=== PATIENT | male | born 1960 | race Caucasian/White ===

== ENCOUNTER → 2018-09-11 10:38 | Outpatient (CLI) | payer OTHER, SELFPAY ==
[2018-09-11 09:41] VITALS: BMI 31.5
[2018-09-11 12:16] LABS: AST(SGOT) 35 U/L (15-37); Alanine Aminotransfer ALT/SGPT 45 U/L (16-61); Albumin, Serum 3.7 g/dL (3.2-5.0); Alkaline Phosphatase 67 U/L (45-117); Anion Gap 11 (5-15); BUN 15 mg/dL (7-18); BUN/Creat Ratio 13.8 RATIO (10-20); Calcium,Total 8.7 mg/dL (8.5-10.1); Chloride 101 mmol/L (98-107); Creatinine, Serum 1.09 mg/dL (0.70-1.30); EST Glomerular Filtration Rate 73 mL/min (>60); Est Glom Filt Rate - Afr Amer 89 mL/min (>60); Globulin 3.7 g/dL (2.2-4.2); Glucose 95 mg/dL (74-106); Potassium 4.4 mmol/L (3.5-5.1); Protein, Total 7.4 g/dL (6.4-8.2); Sodium Level 138 mmol/L (136-145)
--- OUTSIDE RECORDS SUMMARY | 2018-12-13 14:48 | XMS RPT_ITS ---
:1960 Author Organization OHIP Care Team Providers Name Role Phone Chris Brock Attending Unavailable Brown, Chris Referring Unavailable Brown, Chris Attending Unavailable Brown, Chris Referring Unavailable Brown, Chris Primary Care Unavailable Marbin Shi VOLUNTEER SERVICES SPECIALIST-C Attending Unavailable Brown, Chris Referring Unavailable Brown, Chris Primary Care Unavailable PROBLEMS PROBLEMS DATE TYPE CONDITION / CODE ATTENDING STATUS SOURCE 09/11/2018 Unknown I10 - Essential Chris Brock Active Roberta (primary) [facility] hypertension / Hospital I10(ICD-10) Repository PROCEDURES PROCEDURES No Procedure Records FoundRESULTS RESULTS COMPREHENSIVE METABOLIC Collected: 09/11/2018 Status: F Source: [place] PROFIL 10:42 AM [facility] REPOSITORY TYPE CODE TESTS RESULT OUT OF RANGE REFERENCE UNITS LAB L501.0100 74-106 mg/dL Normal GLU 95 Result Comment: Please note revised GLUCOSE reference range effective 2017. LAB L501.1000 7-18 mg/dL Normal BUN 15 LAB L501.1100 0.70-1.30 mg/dL Normal CREAT,SERUM 1.09 Result Comment: The validity of the calculated GFR AND GFRAA in patients over 70 years has not been determined. Clinical correlation is essential. LAB L501.1110 >60 mL/min Normal EST GFR 73 Result Comment: Non- GFR Calc LAB L501.1115 >60 mL/min Normal EST GFR - AA 89 Result Comment: GFR Calc LAB L501.1300 10-20 RATIO Normal BUN/CRE 13.8 LAB L501.1500 6.4-8.2 g/dL T Normal PROT 7.4 LAB L501.1800 3.2-5.0 g/dL Normal ALB 3.7 LAB L501.1950 2.2-4.2 g/dL Normal GLOB 3.7 LAB L501.2000 0.9-2.4 RATIO Normal A/G 1.0 LAB L501.2200 8.5-10.1 mg/dL CA Normal 8.7 LAB L501.4100 15-37 U/L Normal AST 35 Result Comment: Slight Hemolysis, Result may be falsely increased. LAB L501.4305 45-117 U/L Normal ALK P 67 LAB L501.4405 16-61 U/L Normal ALT 45 LAB L501.4600 0.20-1.00 mg/dL Normal T BILI 0.60 LAB L501.5300 136-145 mmol/L Normal NA 138 LAB L501.5600 3.5-5.1 mmol/L Normal K 4.4 Result Comment: Slight Hemolysis, Result may be falsely increased. LAB L501.5900 98-107 mmol/L Normal CL 101 LAB L501.6100 21.0-32.0 mmol/L Normal CO2 26.0 LAB L501.6200 5-15 Normal GAP 11 Performed By: #### L500.4050 #### [facility] [address] [place], [address] INTERNAL MEDICINE Observed: 09/11/2018 Status: F Source: [place] OFFICE VISIT 10:[address] [facility] REPOSITORY [facility] [address] [place] [address] [place] [address] OFFICE VISIT Date of Service: 09/11/18 MR#: [id number] Acct: [id number] Name: LOREE GLEASON Rep #: [id number] : 1960 Provider: Chris Brock DO Age/Sex: 57/M [place] [facility] Status: Signed Intake Vital Signs09/11/18 Height 5 ft 11 in 09/11/18 Weight: 226 lb 09/11/18 Body Mass Index (BMI) 31.5 09/11/18 Blood Pressure 144/86 H Intake Visit Reasons: ANNUAL WELLNESS VISIT Chief Complaint: Annual Wellness Visit Database Dba Required: No Is patient in pain?: No Allergies Penicillins Allergy (Verified 09/11/18 09:43) Other Medications atenolol 50 mg tablet 50 mg PO DAILY #90 tab 06/14/18 [Rx Confirmed 09/11/18] lisinopril 20 mg tablet 20 mg PO DAILY #90 tab 06/14/18 [Rx Confirmed 09/11/18] PFSH Medical History High cholesterol (Chronic) Hypertension (Chronic) Surgical History History of orthopedic surgery (Acute) History of partial surgical removal of colon (Acute) Social History Smoking Status: Never smoker alcohol intake: current alcohol intake frequency: 0-2 drinks per day substance use type: does not use what type of physical activity do you participate in: none HPI HPI Chief Complaint: Annual Wellness Visit Details: LOREE GLEASON, is a 57 M who presents to the office today for Check up on blood pressure medications. ROS Const Constitutional: No chills, fatigue, fever(s), frequent falls, malaise, weakness, sleep problems or change in appetite Eyes Eyes: No blurry vision, change in vision, double vision, discharge or visual disturbances ENT ENT: No abnormal hearing, ear pain, ear pressure, tinnitus or dizziness/vertigo Resp Respiratory: No cough, shortness of breath or wheezing Cardio Cardiology: No chest pain at rest, chest pain with exertion, shortness of breath, dyspnea on exertion, generalized swelling, irregular heart rhythm, lightheadedness, orthopnea, fast heart rate or palpitations Gastro GI: No abdominal pain, change in bowel habits, constipation, diarrhea, nausea/dyspepsia or vomiting Musc Musculoskeletal: No joint pain, back pain, joint swelling, limited range of motion, numbness, tingling or muscle weakness Skin Skin: No change in skin color, itching, rash or wounds Breast Breast: No breast lump or breast pain Neuro Neurology: No frequent falls, weakness, visual disturbances, abnormal hearing, numbness, tingling, unsteady gait/balance, dizziness, loss of vision or memory loss Psych Psychiatric: No change in appetite, No memory loss, No anxiety, No depression, No Thoughts of harming yourself/Others Endo Endocrine: No fatigue, heat intolerance, increased thirst/drinking, increased hunger or increased urination Aller/Imm Allergy/Immunologic: No wheezing, itchy eyes or seasonal allergy symptoms Isaiah/Lymp Hematologic/Lymphatic: No easy bleeding, easy bruising or enlarged lymph nodes Exam Const General: cooperative, comfortable, no acute distress Nutritional Appearance: average body habitus, well nourished Orientation: alert, oriented x3 Limitations: mental status not altered Resp Effort AND Inspection: normal respiratory effort, able to speak in complete sentences, normal respiratory pattern, symmetric chest movement, no audible wheezes, no cough Auscultation: Bilateral: Clear to Auscultation Cardio Palpation: normal PMI Rate: regular rate Heart Sounds: S1 normal, S2 normal, normal S1 and S2, no click, no gallops, no murmurs, no rubs Musc Musculoskeletal: No muscle weakness Skin General: no rashes or lesions noted, elasticity normal, turgor normal Lesions: no lesions Rashes: no rashes Neuro General: alert, awake, oriented x3, CN's II-XI intact bilaterally Speech: speech normal Gait: normal gait Motor: muscle tone normal throughout Extrem General: normal to inspection, normal gait, no edema, no pedal edema Psych Appearance: grossly normal Mental Status: mental status grossly normal Affect: normal affect Attitude: cooperative Thought Process: normal Assessment AND Plan Problems 1. Hypertension I10 2. High cholesterol E78.00 3. Shoulder pain, right M25.511 Plan Set up Cologuard testing. Blood work was ordered medications were refilled.He mentions something about some weakness of his right shoulder but he has perfect range of motion and no pain in the shoulder at all all I could suggest his physical therapy which he may want to do at a later time. Orders Orders: Plan Detail Follow Up 1 Year Coding Level of Care Code Off vis,est,level 3 Diagnoses Hypertension I10 High cholesterol E78.00 Shoulder pain, right M25.511 09/11/18 1017 <Electronically signed by Chris Brock DO> Date [facility] Signature: Date (if applicable) CC: INTERNAL MEDICINE Observed: 06/14/2018 Status: F Source: [place] OFFICE VISIT 4:12 PM [facility] [address] [place] [address] [place] [address] OFFICE VISIT Date of Service: 06/14/18 MR#: [id number] Acct: [id number] Name: LOREE GLEASON Rep #: [id number] : 1960 Provider: Marbin Shi NP Age/Sex: 57/M Location[place] [facility] Status: Signed Intake Vital Signs06/14/18 Height 5 ft 11 in 06/14/18 Weight: 217 lb 06/14/18 Body Mass Index (BMI) 30.2 06/14/18 Blood Pressure 121/77 Intake 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 PT/NEEDS REFILLS Chief Complaint: Needs refills on meds Is patient in pain?: No Allergies Penicillins Allergy (Verified 06/14/18 15:17) Other Medications atenolol 50 mg tablet 50 mg PO DAILY #90 tab 06/14/18 [Rx Confirmed 06/14/18] lisinopril 20 mg tablet 20 mg PO DAILY #90 tab 06/14/18 [Rx Confirmed 06/14/18] PFSH Medical History High cholesterol (Chronic) Hypertension (Chronic) Surgical History History of orthopedic surgery (Acute) History of partial surgical removal of colon (Acute) Social History Smoking Status: Never smoker alcohol intake: current alcohol intake frequency: 0-2 drinks per day substance use type: does not use what type of physical activity do you participate in: none HPI HPI Chief Complaint: Needs refills on meds Details: LOREE GELASON, is a 57 M who presents to the office today for an acute visit of needing refills of his blood pressure medications. He has a past medical history significant for hypertension and hyperlipidemia. The patient states that he has not followed up with primary care for approximately 2 years and is needing a refill of his blood pressure medications. He states that at one point about a year ago he stopped his medications cold turkey and noted his blood pressure was out of control so restarted them but was concerned about running out of the medications so only took them every other day. A courtesy 30 day supply was called in by myself last week and patient has been taking it appropriately and tolerating both medications well. His blood pressure today in the office is 121/77. He denies any signs of hypotension at this time. He denies any chest pain, shortness of breath, syncope, or presyncopal episodes. He does have a annual checkup scheduled later this year. He is requesting 90 day supplies of his medications. ROS Const Constitutional: No chills, fatigue, fever(s), frequent falls, malaise, weakness, sleep problems or change in appetite Eyes Eyes: No blurry vision, change in vision, double vision, discharge or visual disturbances ENT ENT: No abnormal hearing, ear pain, ear pressure, tinnitus or dizziness/vertigo Resp Respiratory: No cough, shortness of breath or wheezing Cardio Cardiology: No chest pain at rest, chest pain with exertion, shortness of breath, dyspnea on exertion, generalized swelling, irregular heart rhythm, lightheadedness, orthopnea, fast heart rate or palpitations Gastro GI: No abdominal pain, change in bowel habits, constipation, diarrhea, nausea/dyspepsia or vomiting Genitourinary Male: No difficulty urinating, burning urination, painful urination, urinary incontinence, urinary frequency, urinary urgency, urinary hesitancy, urinary retention, blood in urine, Frequent nighttime urination/ nocturia, sexual problems, testicle lump or testicle pain Musc Musculoskeletal: Positive for back pain and stiffness; no joint pain, joint swelling, limited range of motion, muscle weakness, numbness or tingling Skin Skin: No change in skin color, itching, rash or wounds Breast Breast: No breast lump or breast pain Neuro Neurology: No frequent falls, weakness, abnormal hearing, numbness, tingling, unsteady gait/balance, dizziness, loss of vision, memory loss or visual disturbances Psych Psychiatric: No memory loss, No anxiety, No change in appetite, No depression, No Thoughts of harming yourself/Others Endo Endocrine: No fatigue, heat intolerance, increased thirst/drinking, increased hunger or increased urination Aller/Imm Allergy/Immunologic: No wheezing, itchy eyes or seasonal allergy symptoms Isaiah/Lymp Hematologic/Lymphatic: No easy bleeding, easy bruising or enlarged lymph nodes Exam Const General: cooperative, comfortable, no acute distress Nutritional Appearance: average body habitus, well nourished Orientation: alert, oriented x3 Limitations: mental status not altered Resp Effort AND Inspection: normal respiratory effort, able to speak in complete sentences, normal respiratory pattern, symmetric chest movement, no audible wheezes, no cough Auscultation: Bilateral: Clear to Auscultation Cardio Palpation: normal PMI Rate: regular rate Heart Sounds: S1 normal, S2 normal, normal S1 and S2, no click, no gallops, no murmurs, no rubs Musc Musculoskeletal: No muscle weakness Skin General: no rashes or lesions noted, elasticity normal, turgor normal Lesions: no lesions Rashes: no rashes Neuro General: alert, awake, oriented x3, CN's II-XI intact bilaterally Speech: speech normal Gait: normal gait Motor: muscle tone normal throughout Extrem General: normal to inspection, normal gait, no edema, no pedal edema Psych Appearance: grossly normal Mental Status: mental status grossly normal Affect: normal affect Attitude: cooperative Thought Process: normal Assessment AND Plan Problems 1. HTN (hypertension) I10 2. High cholesterol E78.00 Plan Hypertension: Controlled on current medications, will not make any adjustments at this time. Will continue with current medication regimen, risk factor reduction, and lifestyle modifications. Discussed dietary changes that should be considered which include reducing the amount of sodium intake. The patient continues to control his cholesterol with dietary modifications, though has not had it checked in quite some time. Patient has not had screening blood work in quite some time, he has a routine annual check scheduled this year and lab work and routine screenings will be addressed at that time. Discussed red flag symptoms of hypertension that require urgent medical attention. Patient verbalized understanding. Medications Refilled: Plan Detail Follow Up As previously scheduled or sooner if needed Coding Level of Care Code Off vis,new,level 3 Diagnoses HTN (hypertension) I10 High cholesterol E78.00 06/14/18 1612 <Electronically signed by Marbin MILLERC> Date Marbin Shi VOLUNTEER SERVICES SPECIALIST-C Cosigner Signature: Date (if applicable) CC: ALLERGIES ALLERGIES DATE TYPE / CODE NAME / CODE REACTION SEVERITY SOURCE 09/11/2018 Drug Penicillins/ Other Unknown [facility] Allergy/4160 [id number]( Hospital 91118(SNOMED XNORM) Repository CT) ENCOUNTERS ENCOUNTERS ADMIT/DISCHARGE ACCOUNT ADMITTING ENCOUNTER LOCATION SOURCE NUMBER CLASS 09/11/2018 [id number] Ambulatory Roberta Roberta 1 [facility] ing:LAB Repository 09/11/2018/ [id number] Ambulatory BMSBuilding:B [place] [address] [place] Repository 06/14/2018/ [id number] Ambulatory BMSBuilding:B [place] [address] [facility] Repository PAYERS PAYERS ENCOUNTER GUARANTOR PAYER SUBSCRIBER SOURCE 09/11/2018 LOREE [id number] Primary LOREE HOUTZDOB: Chris MARQUITA Insurance:Antoinette [id number] [place], [place] Number: [facility] [id number]: [phone] [id number] Repository [phone] () Date:[id number], [place] [address]NU: 09/11/2018 Secondary NOT GIVENUNK Chris Insurance:SELF PAY [facility] Number: Effective Repository Date:2018-09-11 09/11/2018 LOREE [id number] Primary LOREE HOUTZDOB: Chris MARQUITA Insurance:[place]to[id number] Number: [place] [facility] [id number]: [phone] [id number] Repository [phone] () Date:[id number] [address], [place] [address]AB: 09/11/2018 Secondary NOT GIVENUNK Chris Insurance:[facility] Number: Effective Repository Date:2018-09-11 06/14/2018 LOREE [id number] Primary LOREE BURGESSNEGRITAB: Roberta MARQUITA Insurance:Antoinette [id number] [place] Number: [place] [facility] [id number]: [phone] [id number] Repository [phone] () Date:[id number] [address], [place] [address]GN: 06/14/2018 Secondary NOT GIVENUNK Roberta Insurance:SELF PAY [facility]: Effective Repository Date:2018-06-14
== END ==
PROVIDERS: Family Provider Family Medicine; PCP Family Medicine; Referring Provider Family Medicine; Visit Provider Family Medicine
DX: I10 Essential (primary) hypertension (principal)
CPT/HCPCS: 36415; 80053

== ENCOUNTER → 2019-03-21 | Outpatient (CLI) | payer BC, SELFPAY ==
[2019-03-19 09:51] VITALS: BMI 31.5
[2019-03-21 12:15] LABS: Hematocrit 43.4 % (40-54); Hemoglobin 14.9 g/dl (13.0-16.5); Mean Corp Hgb Conc 34.3 g/gl (32-36); Mean Corpuscular Hgb 31.1 pg (27.0-32.0); Mean Corpuscular Volume 90.6 fL (80-94); Platelet Count 197 K/mm3 (150-450); RBC Distribution Width CV 12.8 % (11.6-14.6); RBC Distribution Width SD 42.2 fl (35.1-43.9); Red Blood Count 4.79 M/mm3 (4.6-6.2); Scan Indicated on CBC? Y/N NO; White Blood Count 5.5 K/mm3 (4.4-11.0)
[2019-03-21 12:30] LABS: Hemoglobin A1c 5.8 % (4.2-6.3)
[2019-03-21 12:34] LABS: ALB/GLOB Ratio 0.9 RATIO (0.9-2.4); AST(SGOT) 36 U/L (15-37); Alanine Aminotransfer ALT/SGPT 48 U/L (16-61); Albumin, Serum 3.6 g/dL (3.2-5.0); Alkaline Phosphatase 77 U/L (45-117); Anion Gap 9 (5-15); BUN 23 mg/dL (7-18); BUN/Creat Ratio 19.8 RATIO (10-20); Calcium,Total 8.9 mg/dL (8.5-10.1); Chloride 105 mmol/L (98-107); Cholesterol 241 mg/dL (200); Creatinine, Serum 1.16 mg/dL (0.70-1.30); EST Glomerular Filtration Rate 68 mL/min (>60); Est Glom Filt Rate - Afr Amer 83 mL/min (>60); Globulin 4.2 g/dL (2.2-4.2); Glucose 93 mg/dL (74-106); High Density Lipoprotein 51 mg/dL; PSA,Total - Annual Screen 0.89 ng/mL (0.00-4.00); Potassium 5.1 mmol/L (3.5-5.1); Protein, Total 7.8 g/dL (6.4-8.2); Sodium Level 137 mmol/L (136-145); Thyroid Stim Hormone (TSH) 2.72 uIU/mL (0.358-3.74); Triglycerides 387 mg/dL; Very Low Density Lipoprotein 77 mg/dL (5-40)
== END | disposition home or self-care (01) ==
PROVIDERS: Family Provider Family Medicine; PCP Family Medicine; Visit Provider Nurse Practitioner Family
DX: E66.9 Obesity, unspecified (principal); Z12.5 Encounter for screening for malignant neoplasm of prostate; Z13.0 Encounter for screening for diseases of the blood and blood-forming organs and certain disorders involving the immune mechanism; Z13.29 Encounter for screening for other suspected endocrine disorder; Z13.220 Encounter for screening for lipoid disorders
CPT/HCPCS: 36415; 80053; 80061; 83036; 84153; 84443; 85027; G0103

== ENCOUNTER → 2019-09-01 08:05 | Outpatient (CLI) | payer BC, SELFPAY ==
[2019-08-19 10:57] VITALS: BMI 31.5
[2019-09-01 08:50] LABS: Hematocrit 45.2 % (40-54); Hemoglobin 15.8 g/dL (13.0-16.5); Mean Corpuscular Hgb 31.4 pg (27.0-32.0); Mean Corpuscular Volume 89.9 fL (80-94); Mean Platelet Vol. 8.5 fl (6.2-12.0); Platelet Count 188 K/mm3 (150-450); RBC Distribution Width CV 11.9 % (11.6-14.6); RBC Distribution Width SD 38.8 fl (35.1-43.9); Red Blood Count 5.03 M/mm3 (4.6-6.2)
[2019-09-01 09:36] LABS: AST(SGOT) 32 U/L (15-37); Alanine Aminotransfer ALT/SGPT 49 U/L (16-61); Albumin, Serum 3.6 g/dL (3.2-5.0); Alkaline Phosphatase 59 U/L (45-117); Anion Gap 6 (5-15); BUN 16 mg/dL (7-18); BUN/Creat Ratio 14.3 RATIO (10-20); Chloride 106 mmol/L (98-107); Cholesterol 259 mg/dL (200); Creatinine, Serum 1.12 mg/dL (0.70-1.30); EST Glomerular Filtration Rate 71 mL/min (>60); Est Glom Filt Rate - Afr Amer 86 mL/min (>60); Globulin 3.7 g/dL (2.2-4.2); Glucose 110 mg/dL (74-106); High Density Lipoprotein 61 mg/dL; PSA,Total- Diagnostic 0.74 ng/mL (0.0-4.0); Potassium 4.9 mmol/L (3.5-5.1); Protein, Total 7.3 g/dL (6.4-8.2); Sodium Level 137 mmol/L (136-145); Thyroid Stim Hormone (TSH) 3.23 uIU/mL (0.358-3.74); Triglycerides 187 mg/dL; Very Low Density Lipoprotein 37 mg/dL (5-40)
[2019-09-01 09:52] LABS: Vitamin B12 443 pg/mL (211-911)
== END ==
PROVIDERS: Family Provider Family Medicine; PCP Family Medicine; Visit Provider Nurse Practitioner Family
DX: I10 Essential (primary) hypertension (principal); E78.00 Pure hypercholesterolemia, unspecified; F10.20 Alcohol dependence, uncomplicated; R35.1 Nocturia
CPT/HCPCS: 36415; 80053; 80061; 82607; 82746; 84153; 84443; 85027

== ENCOUNTER → 2020-05-28 08:30 | Outpatient (CLI) | payer BC, SELFPAY ==
[2020-05-28 08:15] VITALS: BMI 31.5
[2020-05-28 12:26] LABS: Absolute Neutrophil Count 6.6 X10^3/uL (2.0-7.7); Basophil# 0.02 X10^3/uL; Basophil% 0.2 % (0-1); Eosinophils% 1.2 % (0-5); Hematocrit 41.6 % (40-54); Hemoglobin 14.4 g/dL (13.0-16.5); Lymphocyte % 14.2 % (19-41); Mean Corp Hgb Conc 34.6 g/dL (32-36); Mean Corpuscular Volume 89.7 fL (80-94); Mean Platelet Vol. 8.8 fl (6.2-12.0); Monocyte# 0.56 X10^3/uL; Monocyte% 6.6 % (0-10); NRBC Flagged by Analyzer 0 % (0-5); Neutrophil # 6.55 X10^3/uL (2.7-7.7); Neutrophil % 77.3 % (47-70); Platelet Count 233 K/mm3 (150-450); RBC Distribution Width CV 12.1 % (11.6-14.6); RBC Distribution Width SD 39.6 fl (35.1-43.9); Red Blood Count 4.64 M/mm3 (4.6-6.2); White Blood Count 8.5 K/mm3 (4.4-11.0)
[2020-05-28 12:48] LABS: AST(SGOT) 52 U/L (15-37); Alanine Aminotransfer ALT/SGPT 61 U/L (16-61); Albumin, Serum 3.9 g/dL (3.2-5.0); Alkaline Phosphatase 61 U/L (45-117); Anion Gap 8 (5-15); BUN 19 mg/dL (7-18); BUN/Creat Ratio 15.8 RATIO (10-20); Calcium,Total 8.8 mg/dL (8.5-10.1); Chloride 105 mmol/L (98-107); Cholesterol 205 mg/dL (200); EST Glomerular Filtration Rate 65 mL/min (>60); Est Glom Filt Rate - Afr Amer 79 mL/min (>60); Globulin 3.9 g/dL (2.2-4.2); Glucose 105 mg/dL (74-106); High Density Lipoprotein 87 mg/dL; Potassium 4.9 mmol/L (3.5-5.1); Protein, Total 7.8 g/dL (6.4-8.2); Sodium Level 135 mmol/L (136-145); Thyroid Stim Hormone (TSH) 1.64 uIU/mL (0.358-3.74); Triglycerides 128 mg/dL; Very Low Density Lipoprotein 26 mg/dL (5-40)
[2020-06-01 09:06] LABS: Testosterone, Free 10.45 ng/dL (5.00-21.00)
[2020-06-01 11:15] LABS: Testosterone, % Free 2.75 % (1.50-4.20); Testosterone, Total 380 ng/dL (264-916)
== END ==
PROVIDERS: PCP Family Medicine; Referring Provider Nurse Practitioner Family; Visit Provider Nurse Practitioner Family
DX: I10 Essential (primary) hypertension (principal); E78.5 Hyperlipidemia, unspecified; N52.9 Male erectile dysfunction, unspecified
CPT/HCPCS: 36415; 80053; 80061; 84402; 84403; 84443; 85025

== ENCOUNTER → 2021-06-03 10:11 | Outpatient (CLI) | payer BC, SELFPAY ==
[2021-06-03 10:40] LABS: Absolute Neutrophil Count 2.4 X10^3/uL (2.0-7.7); Basophil# 0.03 X10^3/uL; Basophil% 0.7 % (0-1); Eosinophils% 6.7 % (0-5); Hematocrit 44.8 % (40-54); Lymphocyte % 26.7 % (19-41); Mean Corp Hgb Conc 33.5 g/dL (32-36); Mean Corpuscular Volume 92.6 fL (80-94); Mean Platelet Vol. 8.5 fl (6.2-12.0); Monocyte# 0.55 X10^3/uL; Monocyte% 12.2 % (0-10); NRBC Flagged by Analyzer 0 % (0-5); Neutrophil % 53.3 % (47-70); Platelet Count 214 K/mm3 (150-450); RBC Distribution Width CV 11.9 % (11.6-14.6); RBC Distribution Width SD 41.1 fl (35.1-43.9); Red Blood Count 4.84 M/mm3 (4.6-6.2); White Blood Count 4.5 K/mm3 (4.4-11.0)
[2021-06-03 11:24] LABS: ALB/GLOB Ratio 0.9 RATIO (0.9-2.4); AST(SGOT) 52 U/L (15-37); Alanine Aminotransfer ALT/SGPT 62 U/L (16-61); Albumin, Serum 3.8 g/dL (3.2-5.0); Alkaline Phosphatase 60 U/L (45-117); Anion Gap 6 (5-15); BUN 23 mg/dL (7-18); BUN/Creat Ratio 21.1 RATIO (10-20); Chloride 102 mmol/L (98-107); Cholesterol 227 mg/dL (200); Creatinine, Serum 1.09 mg/dL (0.70-1.30); EST Glomerular Filtration Rate 73 mL/min (>60); Est Glom Filt Rate - Afr Amer 88 mL/min (>60); Globulin 4.2 g/dL (2.2-4.2); Glucose 102 mg/dL (74-106); High Density Lipoprotein 84 mg/dL; PSA,Total - Annual Screen 2.75 ng/mL (0.00-4.00); Potassium 5.1 mmol/L (3.5-5.1); Sodium Level 135 mmol/L (136-145); Thyroid Stim Hormone (TSH) 1.24 uIU/mL (0.358-3.74); Triglycerides 169 mg/dL; Very Low Density Lipoprotein 34 mg/dL (5-40)
[2021-06-03 12:38] LABS: Hemoglobin A1c 5.2 % (3.8-5.6)
== END ==
PROVIDERS: PCP Family Medicine; Referring Provider Nurse Practitioner Family; Visit Provider Nurse Practitioner Family
DX: I10 Essential (primary) hypertension (principal); E78.00 Pure hypercholesterolemia, unspecified
CPT/HCPCS: 36415; 80053; 80061; 83036; 84153; 84443; 85025; G0103

== ENCOUNTER → 2022-04-28 | Outpatient (CLI) | payer BC, SELFPAY ==
[2022-04-28 16:43] LABS: Absolute Lymphocyte Count 1.23 X10^3/uL (0.83-4.51); Absolute Neutrophil Count 5.4 X10^3/uL (2.0-7.7); Basophil# 0.03 X10^3/uL; Basophil% 0.4 % (0-1); Eosinophil# 0.09 X10^3/uL; Eosinophils% 1.2 % (0-5); Hematocrit 35.1 % (40-54); Lymphocyte # 1.23 X10^3/ul (0.83-4.51); Lymphocyte % 16.5 % (19-41); Mean Corp Hgb Conc 34.2 g/dL (32-36); Mean Corpuscular Hgb 30.8 pg (27.0-32.0); Mean Platelet Vol. 8.3 fl (6.2-12.0); Monocyte# 0.68 X10^3/uL; Monocyte% 9.1 % (0-10); NRBC Flagged by Analyzer 0 % (0-5); Neutrophil # 5.36 X10^3/uL (2.7-7.7); Neutrophil % 72.1 % (47-70); Platelet Count 233 K/mm3 (150-450); RBC Distribution Width CV 12.7 % (11.6-14.6); RBC Distribution Width SD 40.9 fl (35.1-43.9); White Blood Count 7.4 K/mm3 (4.4-11.0)
[2022-04-28 17:23] LABS: ALB/GLOB Ratio 1.1 RATIO (0.9-2.4); AST(SGOT) 40 U/L (15-37); Alanine Aminotransfer ALT/SGPT 60 U/L (16-61); Albumin, Serum 3.7 g/dL (3.2-5.0); Alkaline Phosphatase 54 U/L (45-117); Anion Gap 10 (5-15); BUN 20 mg/dL (7-18); BUN/Creat Ratio 14.2 RATIO (10-20); Calcium,Total 8.9 mg/dL (8.5-10.1); Chloride 107 mmol/L (98-107); Cholesterol 201 mg/dL (200); Creatinine, Serum 1.41 mg/dL (0.70-1.30); EST Glomerular Filtration Rate 54 mL/min (>60); Est Glom Filt Rate - Afr Amer 65 mL/min (>60); Globulin 3.5 g/dL (2.2-4.2); Glucose 105 mg/dL (74-106); High Density Lipoprotein 84 mg/dL; PSA,Total - Annual Screen 0.54 ng/mL (0.00-4.00); Potassium 3.9 mmol/L (3.5-5.1); Protein, Total 7.2 g/dL (6.4-8.2); Sodium Level 141 mmol/L (136-145); Thyroid Stim Hormone (TSH) 1.85 uIU/mL (0.358-3.74); Triglycerides 129 mg/dL; Very Low Density Lipoprotein 26 mg/dL (5-40)
== END | disposition home or self-care (01) ==
PROVIDERS: PCP Family Medicine; Referring Provider Nurse Practitioner Family; Visit Provider Nurse Practitioner Family
DX: Z00.00 Encounter for general adult medical examination without abnormal findings (principal); Z12.5 Encounter for screening for malignant neoplasm of prostate
CPT/HCPCS: 36415; 80053; 80061; 84153; 84443; 85025; G0103

== ENCOUNTER 2022-05-24 14:27 | Emergency (ER) | payer OTHER, SELFPAY ==
[2022-05-24 14:28] VITALS: BP 153/94; PULSE 80; RESP 18; TEMP 36.8; O2SAT 97; BMI 29.2
--- NOTE | 2022-05-24 14:40 | EX.ED.UPPERE ---
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 He tried to put a dressing on pressure finish work however at home be bled states 1 area was squirting blood. He placed a dressing on it. He is not on any anticoagulants. Tetanus unknown. No paresthesias. No loss of function. Injury to left index finger. No other injuries. Tetanus Immunization: Unknown [facility] Medical History Encounter for preventative adult health care examination High cholesterol Hypertension Home Medications icosapent ethyl 1 gram capsule (Vascepa) 2 g PO BID #360 caps 04/28/22 [Rx Last Taken Unknown] lisinopril 30 mg tablet 30 mg PO DAILY #90 tabs 04/28/22 [Rx Last Taken Unknown] rosuvastatin 5 mg tablet (Crestor) 5 mg PO DAILY #90 tabs 04/28/22 [Rx Last Taken Unknown] Allergy/AdvReac Type Severity Reaction Status Date / Time Penicillins Allergy Other Verified 05/24/22 14:31 Family History Father Hypertension Mother Hypertension Surgical History History of orthopedic surgery History of partial surgical removal of colon Social History Smoking Status: Never smoker alcohol intake: current alcohol intake frequency: 0-2 drinks per day substance use type: does not use what type of physical activity do you participate in: none ROS ROS ED Constitutional Constitutional ED: Denies chills, fever(s) or sweats Eyes Eyes: Denies change in vision ENT ENT ED: Denies dysphagia or sore throat Cardiovascular Cardiovascular: Denies chest pain, leg edema, palpitations or racing heartbeat Respiratory/Chest Respiratory/Chest: Denies cough, dyspnea or dyspnea on exertion Gastrointestinal Gastrointestinal: Denies abdominal pain, diarrhea, nausea or vomiting Genitourinary Genitourinary ED: Denies dysuria, hematuria or urinary frequency Musculoskeletal Musculoskeletal: Denies back pain, extremity pain or neck pain Integumentary Reports wounds and other Details: Left index injury ; Denies rash Neurologic Neurologic: Denies headache(s), paresthesias or weakness EXAM Physical Exam Const Vital Signs: 05/24/22 14:28 Temperature 98.3 F Temperature Source Temporal Pulse Rate 80 Respiratory Rate 18 Blood Pressure 153/94 H Blood Pressure Mean 113 Pulse Ox 97 Oxygen Delivery Method Room Air Positive well nourished and well developed General Appearance ED: well developed and NAD HEENT Reports moist mucous membranes normocephalic and atraumatic Eyes PERRL, EOMs intact bilaterally and conjunctivae normal General Eye ED: Yes normal appearance of both eyes Neck no lymphadenopathy and supple General: Negative for tenderness Chest Wall Chest: Negative for tenderness Resp normal respiratory effort and normal air movement Effort and Inspection: symmetric chest movement; Negative for respiratory distress Cardio regular rate, regular rhythm and no murmurs Peripheral Pulses: pulses 2+ throughout GI normal to inspection, nondistended, normoactive bowel sounds and non-tender Palpation: Negative for guarding or rebound tenderness present Back/Spine no CVA tenderness and no thoracic nor lumbar tenderness Extremity Extremity Narrative: Left hand index finger: Dorsal proximal phalanx had a 3 cm slant laceration, there is no active bleeding when dressing was removed. Subcu exposure. We will explore if any tendon injuries with repair. His extensor mechanism was intact. Neuro oriented x3 and no sensory deficits noted Sensorium / Orientation: awake and alert Skin no rashes or lesions noted and no wounds MDM MDM MDM Narrative Medical decision making narrative: After wound anesthetized, turnicot was placed, wound was explored with sterile hemostat, noted very superficial injury to extensor tendon of the index finger. This was seen in full range of motion at the middle aspect of the proximal phalanx. There noted to be a small capillary bleed radial aspect mid wound. Controlled with pressure. Wound was closed with a total of 5, 4-0 nylon sutures. Patient follow-up with occupational health with appropriate work restrictions. Finger splint. Also given orthopedics if needed for further clearance. Tetanus was updated all questions were answered. Procedure note: Verbal consent. Normal sterile conditions. 4 cc 1% lidocaine used for finger block. Turnicot was placed, wound was copiously cleansed with Shur-Clens along with normal saline flushing. Total of 250 cc was used. Wound was explored with a hemostat noting partial superficial tendon injury. Additional flushing performed. Wound was closed with total of 5, 4-0 simple interrupted sutures. Turnicot was removed. Bacitracin dressing placed by myself. Patient tolerated procedure well. Discharge Plan Triage Chief Complaint: Laceration ED Provider: Ab Burgos Dx/Rx/DC Orders Clinical Impression: Laceration of left index finger with tendon involvement, Injury of left index finger, Tetanus toxoid vaccination administered at current visit Instructions: ED Laceration: All Closures Prescriptions: No Action icosapent ethyl [Vascepa] 1 gram capsule 2 g PO BID Qty: 360 3RF Rx Instructions: TAKE 2 CAPSULES BY MOUTH TWICE A DAY rosuvastatin [Crestor] 5 mg tablet 5 mg PO DAILY Qty: 90 3RF lisinopril 30 mg tablet 30 mg PO DAILY Qty: 90 3RF Label Comments: blood pressure Primary Care Provider: Chris Brock Referrals: [facility] [Group of Physicians] - 3-5 Days Chris Brock DO [Primary Care Provider] - Gianfranco Bragg DO [Med Staff - Active Staff] - 1-2 Weeks Activity Restrictions/Additional Instructions: Left index finger laceration from snuff grinder. Very superficial injury to the extensor tendon radial aspect at the proximal phalanx. Total 5 stitches were placed. Wear your finger splint. Wound care discussed. Follow-up with [facility], orthopedics as needed. Disposition Disposition: Home, Self Care Discharge Date/Time: 05/24/22 17:16
--- NOTE | 2022-05-24 16:13 | ED.RN ---
[facility] CALLED, COMPANY DOES NOT HAVE PROFILE WITH THEM. COMPANY CALLED AND DIRECTED TO PT;S SENIOR REGULATORY AFFAIRS SPECIALIST. DRUG TEST NEEDED. JOLIE FROM [facility]. CARE CALLED.
[2022-05-24] MEDS: Diphth,Pertuss(Acell),Tet Vac 0.5 ML Vial IM (16:23)
[2022-05-24] MEDS: Lidocaine 1% (20 ml mdv) 20 ML Vial INFILT (16:23)
[2022-05-24 16:27] VITALS: RESP 18
== END 2022-05-24 17:16 | disposition home or self-care (01) ==
PROVIDERS: Emergency Provider Emergency Medicine; PCP Family Medicine; Visit Provider Emergency Medicine
DX: S61.211A Laceration without foreign body of left index finger without damage to nail, initial encounter (principal); E78.00 Pure hypercholesterolemia, unspecified; I10 Essential (primary) hypertension; Z79.899 Other long term (current) drug therapy; Z23 Encounter for immunization; X58.XXXA Exposure to other specified factors, initial encounter
CPT/HCPCS: 12002; 90715; 96372; 99283

== ENCOUNTER → 2023-05-21 | Outpatient (CLI) | payer BC, SELFPAY ==
[2023-05-21 12:10] LABS: Absolute Lymphocyte Count 1.22 X10^3/uL (0.83-4.51); Basophil# 0.03 X10^3/uL; Basophil% 0.7 % (0-1); Eosinophils% 7.3 % (0-5); Hematocrit 40.5 % (40-54); Hemoglobin 13.5 g/dL (13.0-16.5); Lymphocyte # 1.22 X10^3/ul (0.83-4.51); Lymphocyte % 29.8 % (19-41); Mean Corp Hgb Conc 33.3 g/dL (32-36); Mean Corpuscular Volume 93.1 fL (80-94); Mean Platelet Vol. 8.6 fl (6.2-12.0); Monocyte# 0.55 X10^3/uL; Monocyte% 13.4 % (0-10); NRBC Flagged by Analyzer 0 % (0-5); Neutrophil # 1.97 X10^3/uL (2.7-7.7); Neutrophil % 48.3 % (47-70); Platelet Count 218 K/mm3 (150-450); RBC Distribution Width CV 11.6 % (11.6-14.6); RBC Distribution Width SD 39.9 fl (35.1-43.9); Red Blood Count 4.35 M/mm3 (4.6-6.2); White Blood Count 4.1 K/mm3 (4.4-11.0)
[2023-05-21 12:43] LABS: ALB/GLOB Ratio 0.9 RATIO (0.9-2.4); AST(SGOT) 47 U/L (15-37); Alanine Aminotransfer ALT/SGPT 53 U/L (16-61); Albumin, Serum 3.4 g/dL (3.2-5.0); Alkaline Phosphatase 51 U/L (45-117); Anion Gap 8 (5-15); BUN 22 mg/dL (7-18); BUN/Creat Ratio 19.1 RATIO (10-20); Calcium,Total 8.7 mg/dL (8.5-10.1); Chloride 109 mmol/L (98-107); Cholesterol 191 mg/dL (200); Creatinine, Serum 1.15 mg/dL (0.70-1.30); EST Glomerular Filtration Rate 68 mL/min (>60); Est Glom Filt Rate - Afr Amer 82 mL/min (>60); Globulin 3.7 g/dL (2.2-4.2); Glucose 100 mg/dL (74-106); High Density Lipoprotein 72 mg/dL; PSA,Total - Annual Screen 1.32 ng/mL (0.00-4.00); Potassium 4.7 mmol/L (3.5-5.1); Protein, Total 7.1 g/dL (6.4-8.2); Sodium Level 139 mmol/L (136-145); Thyroid Stim Hormone (TSH) 3.16 uIU/mL (0.358-3.74); Triglycerides 238 mg/dL; Very Low Density Lipoprotein 48 mg/dL (5-40)
== END | disposition home or self-care (01) ==
LOC: BIMLAB 08:01
PROVIDERS: Visit Provider Nurse Practitioner Family
DX: Z00.00 Encounter for general adult medical examination without abnormal findings (principal)
CPT/HCPCS: 36415; 80053; 80061; 84153; 84443; 85025; G0103

== ENCOUNTER → 2023-08-09 | Outpatient (CLI) | payer BC, SELFPAY ==
[2023-08-09 12:23] LABS: Absolute Lymphocyte Count 1.09 X10^3/uL (0.83-4.51); Absolute Neutrophil Count 2.3 X10^3/uL (2.0-7.7); Basophil# 0.03 X10^3/uL; Basophil% 0.7 % (0-1); Hematocrit 44.5 % (40-54); Hemoglobin 15.2 g/dL (13.0-16.5); Lymphocyte # 1.09 X10^3/ul (0.83-4.51); Mean Corp Hgb Conc 34.2 g/dL (32-36); Mean Corpuscular Hgb 30.9 pg (27.0-32.0); Mean Corpuscular Volume 90.4 fL (80-94); Mean Platelet Vol. 8.2 fl (6.2-12.0); Monocyte# 0.42 X10^3/uL; Monocyte% 10.4 % (0-10); NRBC Flagged by Analyzer 0 % (0-5); Neutrophil # 2.28 X10^3/uL (2.7-7.7); Neutrophil % 56.7 % (47-70); Platelet Count 248 K/mm3 (150-450); RBC Distribution Width CV 12.9 % (11.6-14.6); RBC Distribution Width SD 42.5 fl (35.1-43.9); Red Blood Count 4.92 M/mm3 (4.6-6.2)
[2023-08-09 12:43] LABS: Anion Gap 6 (5-15); BUN 21 mg/dL (7-18); BUN/Creat Ratio 17.8 RATIO (10-20); Chloride 106 mmol/L (98-107); Creatinine, Serum 1.18 mg/dL (0.70-1.30); EST Glomerular Filtration Rate 66 mL/min (>60); Est Glom Filt Rate - Afr Amer 80 mL/min (>60); Glucose 108 mg/dL (74-106); Potassium 4.9 mmol/L (3.5-5.1); Sodium Level 138 mmol/L (136-145)
== END | disposition home or self-care (01) ==
LOC: BIMLAB 10:42
PROVIDERS: PCP Family Medicine; Referring Provider Family Medicine; Visit Provider Family Medicine
DX: I10 Essential (primary) hypertension (principal)
CPT/HCPCS: 36415; 80048; 85025

== ENCOUNTER 2024-06-18 12:04 | Outpatient (CLI) | payer MEDICARE, SELFPAY ==
[2024-06-18 15:21] LABS: Absolute Lymphocyte Count 1.06 X10^3/uL (0.83-4.51); Absolute Neutrophil Count 3.1 X10^3/uL (2.0-7.7); Basophil# 0.03 X10^3/uL; Basophil% 0.6 % (0-1); Eosinophil# 0.29 X10^3/uL; Eosinophils% 5.8 % (0-5); Hematocrit 39.6 % (40-54); Hemoglobin 13.5 g/dL (13.0-16.5); Lymphocyte # 1.06 X10^3/ul (0.83-4.51); Lymphocyte % 21.3 % (19-41); Mean Corp Hgb Conc 34.1 g/dL (32-36); Mean Platelet Vol. 8.9 fl (6.2-12.0); Monocyte# 0.53 X10^3/uL; Monocyte% 10.6 % (0-10); NRBC Flagged by Analyzer 0 % (0-5); Neutrophil # 3.06 X10^3/uL (2.7-7.7); Neutrophil % 61.5 % (47-70); Platelet Count 252 K/mm3 (150-450); RBC Distribution Width SD 39.8 fl (35.1-43.9); Red Blood Count 4.66 M/mm3 (4.6-6.2)
[2024-06-18 15:40] LABS: Vitamin B12 460 pg/mL (211-911); Vitamin D,25 Hydroxy 42.5 ng/mL
[2024-06-18 15:52] LABS: ALB/GLOB Ratio 1.2 RATIO (0.9-2.4); AST(SGOT) 28 U/L (15-37); Alanine Aminotransfer ALT/SGPT 30 U/L (16-61); Albumin, Serum 3.9 g/dL (3.2-5.0); Alkaline Phosphatase 68 U/L (45-117); Anion Gap 6 (5-15); BUN 15 mg/dL (7-18); BUN/Creat Ratio 13.6 RATIO (10-20); Calcium,Total 9.2 mg/dL (8.5-10.1); Chloride 105 mmol/L (98-107); EST Glomerular Filtration Rate 71 mL/min (>60); Est Glom Filt Rate - Afr Amer 86 mL/min (>60); Globulin 3.3 g/dL (2.2-4.2); Glucose 98 mg/dL (74-106); Potassium 4.3 mmol/L (3.5-5.1); Protein, Total 7.2 g/dL (6.4-8.2); Sodium Level 136 mmol/L (136-145)
[2024-06-20 14:10] LABS: Free Kappa Light Chains 22.6 mg/L (3.3-19.4); Free Lambda Light Chains 14.2 mg/L (5.7-26.3)
== END 2024-06-18 23:59 | disposition home or self-care (01) ==
LOC: BIMLAB 12:08
PROVIDERS: PCP Family Medicine; Referring Provider Family Medicine; Visit Provider Family Medicine
DX: G25.81 Restless legs syndrome (principal); R20.0 Anesthesia of skin; R20.2 Paresthesia of skin
CPT/HCPCS: 36415; 80053; 82306; 82607; 83883; 84443; 85025

== ENCOUNTER → 2024-07-09 | Outpatient (CLI) | payer MEDICARE, SELFPAY ==
--- NOTE | 2024-07-09 10:58 | RAD_ITS ---
STUDY: X-RAY - LUMBAR SPINE REASON FOR EXAM: Male, 63 years old. low back pain TECHNIQUE: 3 view(s) of the lumbar spine were obtained. COMPARISON: CT of abdomen and pelvis dated April 12, 2016. FINDINGS: Normal lumbar lordosis. Mild dextroscoliosis with moderate multilevel disc space narrowing and endplate spurring. No visualized fracture or compression deformity. The soft tissue structures are unremarkable. RAD/Lumbar Spine 2 or 3 Views IMPRESSION: Degenerative changes of the spine, as detailed above. Electronically Signed: Javad Ramsay MD at 16:26 EDT ,
== END | disposition home or self-care (01) ==
PROVIDERS: PCP Family Medicine; Referring Provider Family Medicine; Visit Provider Family Medicine
DX: M54.50 Low back pain, unspecified (principal); G89.29 Other chronic pain
CPT/HCPCS: 72100

== ENCOUNTER → 2024-07-28 | Outpatient (CLI) | payer MEDICARE, SELFPAY ==
--- NOTE | 2024-07-28 08:15 | MRI_ITS ---
EXAM: MR LUMBAR SPINE WITHOUT INTRAVENOUS CONTRAST CLINICAL INDICATION: low back pain with radiculopathy TECHNIQUE: Multiplanar and multisequence MR images of the lumbar spine without intravenous contrast. COMPARISON: No relevant prior studies available. FINDINGS: VERTEBRAE: Unremarkable. Vertebral body heights are preserved. Normal vertebral bodies and posterior elements. Normal alignment. No spondylolisthesis. There is preservation of the normal lumbar lordosis. SPINAL CORD: Unremarkable. Normal position and signal intensity of the conus medullaris at the lower L1 body level.. SOFT TISSUES: Unremarkable. DISCS/SPINAL CANAL/NEURAL FORAMINA: L1-L2: Mild-moderate decreased disc height, mild annular disc bulge, and minimal flattening of the ventral thecal sac without significant neural foraminal or lateral recess effacement. L2-L3: Modic type endplate degenerative changes of the opposing endplates, mild high signal on T2 and milder increased high signal on inversion recovery. No increased T2 signal intensity in the disc. Mild disc space narrowing and moderate annular disc bulge. Mild ligamentum flavum hypertrophy. Left greater than right mild-moderate proximal neural foraminal stenosis. No magda spinal stenosis, AP diameter in the midline canal is estimated to be 1 cm. L3-L4: Mild decreased disc height. Decreased disc T2 signal intensity. Mild Modic type endplate degenerative changes of the opposing vertebral body endplates without significant bone marrow edema. Mild annular disc bulge mildly effacing the ventral thecal sac and slightly narrowing the spinal canal to roughly 9.7 mm AP in the midline. Mild-moderate fairly symmetric proximal neural foraminal stenosis. L4-L5: Moderate annular disc bulge. Mild decreased height. There is mild effacement of the lateral recesses and moderate bilateral proximal neural foraminal stenosis. Mild hypertrophic changes of the facet joints contribute to the neural foraminal stenosis. Mild spinal canal stenosis, AP diameter in the midline 9 mm. L5-S1: Mild decreased disc height moderate annular disc bulge and multiple mild accentuated focal bulges-protrusions including in the posterior midline and the lateral disc bilaterally. Modic-type degenerative changes of the opposing vertebral body endplates. Moderate-marked left and mild right neural foraminal stenosis. No spinal stenosis, AP diameter of the canal in the midline 1.6 cm. Mild hypertrophic facet joints. MRI/Spine Lumbar (Routine) IMPRESSION: Multilevel degenerative changes. Multilevel neural foraminal stenosis, especially on the left at L5-S1. Minimal spinal stenosis at L4-5. Electronically Signed: Ranjana Rubi MD at 2:10 EST ,
== END | disposition home or self-care (01) ==
PROVIDERS: PCP Family Medicine; Referring Provider Family Medicine; Visit Provider Family Medicine
DX: M54.50 Low back pain, unspecified (principal); M54.10 Radiculopathy, site unspecified
CPT/HCPCS: 72148